=== PATIENT | female | born 1960 | race Caucasian/White ===

== ENCOUNTER → 2018-01-08 08:05 | Outpatient (CLI) | payer OTHER, SELFPAY ==
[2018-01-08 09:22] LABS: Add Manual Diff / Slide Review NO; Basophils Percent Auto 1.4 % (0-2); Eosinophils Percent Auto 3.9 % (2-4); Hematocrit 38.5 % (36-46); Lymphocytes Percent Auto 31.2 % (25-40); Mean Corpuscular HGB Conc 33.9 % (30-36); Mean Corpuscular Volume 85.6 fL (80-100); Monocytes Percent Auto 5.9 % (3-14); Neutrophils Absolute Auto 3500 /uL (3000-5900); Neutrophils Percent Auto 57.6 % (50-75); Platelet Count 202 X10^3/uL (150-400); Red Blood Cell Count 4.49 X10^6/uL (4.0-5.2); Red Cell Distribution Width 13.3 % (11.6-14.8); White Blood Cell Count 6.1 X10^3/uL (4.5-11.0)
[2018-01-08 09:36] LABS: Hemoglobin A1C% w Est Avg Glu 5.5 % (4.0-6.0)
[2018-01-08 09:45] LABS: Alanine Aminotransferase 28 IU/L (9-52); Albumin 4.4 g/dL (3.5-5.0); Albumin Globulin Ratio 1.8 (1.0-2.8); Alkaline Phosphatase 70 U/L (38-126); Aspartate Aminotransferase 22 IU/L (14-36); Bilirubin Total 0.6 mg/dL (0.2-1.3); Blood Urea Nitrogen 14 mg/dL (7-17); Calcium 9.1 mg/dL (8.4-10.2); Carbon Dioxide 28 mmol/L (22-32); Chloride 105 mmol/L (98-107); Cholesterol 165 mg/dL (140-199); Estimated Glomerular Filt Rate > 60.0 mL/min (>60); Globulin 2.5 g/dL (1.7-4.1); Glucose 91 mg/dL (70-100); HDL Cholesterol 59 mg/dL (40-60); HEMOLYSIS < 15 (0-50); LDL Cholesterol Calculated 86 mg/dL (<100); Potassium 4.2 mmol/L (3.4-5.1); Sodium 142 mmol/L (137-145); Total Protein 6.9 g/dL (6.3-8.2); Triglycerides 99 mg/dL (35-150)
[2018-01-08 10:18] LABS: TSH w/ Reflex to FT4 0.75 uIU/mL (0.47-4.68)
== END ==
PROVIDERS: Visit Provider Family Medicine
DX: R03.0 Elevated blood-pressure reading, without diagnosis of hypertension (principal); Z86.32 Personal history of gestational diabetes
CPT/HCPCS: 36415; 80053; 80061; 83036; 84443; 85025

== ENCOUNTER → 2020-09-16 12:10 | Outpatient (CLI) | payer OTHER, SELFPAY ==
[2020-09-16] MEDS: COVID-19 VACC #1, MRNA(MOD) 100 MCG/0.5 ML VIAL IM (12:19)
== END ==
PROVIDERS: Visit Provider Internal Medicine
DX: Z23 Encounter for immunization (principal)
CPT/HCPCS: 0011A; 91301

== ENCOUNTER → 2020-10-14 12:26 | Outpatient (CLI) | payer OTHER, SELFPAY ==
[2020-10-14] MEDS: COVID-19 VACC #2, MRNA(MOD) 100 MCG/0.5 ML VIAL IM (12:33)
== END ==
PROVIDERS: Visit Provider Internal Medicine
DX: Z23 Encounter for immunization (principal)
CPT/HCPCS: 0012A; 91301

== ENCOUNTER 2024-02-26 18:39 | Emergency (ER) | payer OTHER, SELFPAY ==
[2024-02-26] VITALS (11 sets, daily range): BP systolic 161–203; BP diastolic 78–102; PULSE 81–113; RESP 20; TEMP 36.8; O2SAT 96–100; BMI 28.3
--- NOTE | 2024-02-26 18:58 | DI.RAD.S_ITS ---
PROCEDURE: XR ELBOW RT MIN 3V INDICATIONS: fall, pain TECHNIQUE: 3 views of the elbow were acquired. COMPARISON: None. FINDINGS: Bones: No fractures or dislocations. No suspicious bony lesions. Soft tissues: No elbow joint effusion. No suspicious soft tissue calcifications. IMPRESSION: No visualized acute fracture or dislocation. However, if clinical concern and/or pain persist, short interval imaging followup in 7-10 days is recommended, as occult injury cannot be definitively excluded. Dictated by: Lizette Renee M.D. on 02/26/2024 at 20:01 Approved by: Lizette Renee M.D. on 02/26/2024 at 20:01
[2024-02-26] MEDS: ACETAMINOPHEN 325 MG TABLET 650 MG PO (19:50)
--- NOTE | 2024-02-26 22:57 | ED_ITS ---
HPI - Fall General Chief Complaint: Fall Stated Complaint: GLF Time Seen by Provider: 02/26/24 22:34 Source: patient and EMS Mode of arrival: EMS Limitations: no limitations History of Present Illness HPI Narrative: 63-year-old female with no reported medical issues. Patient states she was walking her dog, it was distracted by another dog and pulled her forward some how she fell backwards and hit her head on the wall of the building. She states she felt little bit dizzy immediately afterwards. She has a large goose egg. She denies any loss of consciousness. She states her headache has resolved. Denies any neck pain, denies any chest pain or shortness of breath. No nausea or vomiting. No diarrhea or constipation. No urinary symptoms. No numbness tingling or weakness. She notes little bit of a contusion or discomfort at her right elbow. She states it is moving fine without issue. She feels much improved at this time. Denies any daily medications or medical issues. She does not take any aspirin or daily thinners. She was noted to be hypertensive in the department she states she was told that her last dental appointment she was little bit hypertensive. She has not followed this up. Denies any tobacco, no alcohol, no recreational drugs besides marijuana. Related Data Allergies Allergy/AdvReac Type Severity Reaction Status Date / Time No Known Drug Allergies Allergy Verified 02/26/24 18:58 Review of Systems Review of Systems ROS Unobtainable: All systems reviewed & are unremarkable except as noted in HPI and below Patient History Social History Smoking Status: Never smoker Smoking Status: Never smoker alcohol intake frequency: other Substance Use Type: marijuana Exam Narrative Exam Narrative: GEN: Patient appears in mild distress. HEAD: Hematoma and a posterior scalp, no raccoon/Watt sign. NECK: Nontender, painless range of motion, trachea midline Negative Nexus criteria, no midline line tenderness, distracting injury, altered mental status, neuro deficit, recent EtOH. EYES: PERRLA, EOMI ENT: External inspection normal, trachea is midline, TM's are normal no hemotypanum, Nares are clear, no septal hematoma, no dental or oral injury, airway is normal and with normal occlusion, No bony tenderness RESP: Chest is nontender and has symmetric movement, no ecchymosis, breath sounds are normal no crackles, wheezes or rales CVS: Heart sounds are normal, no murmur noted, No JVD. ABG/GI: Nontender, soft, normal bowel sounds, no distention, no organomegaly, pelvic rock is negative NEURO: Oriented AOx3, neuro is grossly intact, sensation and motor is normal all 4 extremities moving, cranial nerves II through XII are intact, GCS is 15 PSYCH: Normal mood and affect SKIN: Intact, warm and dry, no crepitus and without decubitus BACK: No CVA tenderness, no vertebral tenderness, no step-off's, no crepitus EXT: Nontender to palpation at the right elbow. Patient has some mild swelling. No abrasion or contusion noted. Hips are nontender, no pedal edema, normal color and temperature, normal range of motion of extremities with normal tendon exam, 2+ pulses in all four extremities Initial Vital Signs Initial Vital Signs: Vital Signs Temperature 98.2 F 02/26/24 18:48 Pulse Rate 99 H 02/26/24 18:48 Respiratory Rate 20 02/26/24 18:48 Blood Pressure 203/98 H 02/26/24 18:48 Pulse Oximetry 100 02/26/24 18:48 Oxygen Delivery Method Room Air 02/26/24 18:[address] Head Rule Age <16 years old: No Patient on blood thinners: No Seizure after injury: No Exclusion: Patient NOT Excluded, Proceed to next steps GCS < 15 at 2 hr post trauma: No Suspected open or depressed skull fracture: No Any sign of basilar skull fracture (hemotympanum, raccoon eyes, Watt's sign, CSF hilda-/rhinorrhea): No Two or more episodes of vomiting: No Age greater or equal to 65 years: No Retrograde amnesia to the event greater or equal to 30 min: No Dangerous Mechanism (pedestrian vs. mv, occupant ejected from mv, fall from >3 ft or > 5 stairs): No Recommendation: CT unnecessary Nexus Score for C-Spine Focal Neurologic deficit present: No Midline spinal tenderness present: No Altered level of conciousness present: No Intoxication present: No Distracting Injury Present: No Nexus Criteria for C-spine: 0 Course Orders Ordered: Discontinued Medications Acetaminophen (Acetaminophen 325 Mg Tablet) 650 mg PO NOW ONE Stop: 02/26/24 19:50 Last Admin: 02/26/24 19:50 Dose: 650 mg Documented By: AB Vital Signs Vital signs: Vital Signs - 8 hr 02/26/24 21:30 02/26/24 21:30 02/26/24 22:00 Pulse Rate 89 84 Blood Pressure 183/95 H Pulse Oximetry 96 96 Oxygen Delivery Method 02/26/24 22:00 02/26/24 22:30 02/26/24 22:30 Pulse Rate 99 H Blood Pressure 168/83 H 189/98 H Pulse Oximetry 97 Oxygen Delivery Method 02/26/24 23:00 02/26/24 23:00 Pulse Rate 113 H Blood Pressure 193/95 H Pulse Oximetry 98 Oxygen Delivery Method Room Air MDM - Fall Imaging Data Extremity x-ray #1: Radiologist's Impression: [address] [address] XRay Report Signed Patient: Arlene Thorne I MR#: [id number] : 1960 Acct:[id number] Age/Sex: 63 / F Date of Service: 02/26/24 Loc: ED Accession Number: [id number] Procedure: XR elbow RT min 3V Ordering Provider: Violet Walters D.O. PROCEDURE: XR ELBOW RT MIN 3V INDICATIONS: fall, pain TECHNIQUE: 3 views of the elbow were acquired. COMPARISON: None. FINDINGS: Bones: No fractures or dislocations. No suspicious bony lesions. Soft tissues: No elbow joint effusion. No suspicious soft tissue calcifications. IMPRESSION: No visualized acute fracture or dislocation. However, if clinical concern and/or pain persist, short interval imaging followup in 7-10 days is recommended, as occult injury cannot be definitively excluded. Dictated by: Lizette Renee M.D. on 02/26/2024 at 20:01 Approved by: Lizette Renee M.D. on 02/26/2024 at 20:01 [facility] Narrative Medical decision making narrative: 63-year-old female who had a ground level fall actually striking of the wall of the building not a complete fall to the ground. Does have a goose egg on her posterior scalp noted little bit dizziness immediately afterwards and some headache. She states all has resolved. She has no persistent symptoms. She was not take any anticoagulants. Patient based on score is does not require head CT at this time she has no red flag symptoms that felt to necessitate this and does not take any anticoagulants. Did have a right elbow x-ray which is negative. Patient would very much like to discharge home. She has been ambulating without issue in the department. Discussed return precautions. Patient is noted to be hypertensive as department throughout her stay, she has not had any bradycardia. She notes that she was told she was hypertension and a dental visit several months ago. Does not have a current primary care so has not had her blood pressure checked any time recently. Discharge Plan Departure Patient Disposition: Home Clinical Impression: Hematoma of scalp, Elbow pain, right Instructions: Closed Head Injury Activity Restrictions/Additional Instructions: I would recommend follow up with primary care to have your blood pressure rechecked. You can take Tylenol up to a 1000 mg every 6 hours as needed for headaches. Please return for worsening headaches, severe headaches, sudden vision changes, new neck or back pain, new numbness tingling or weakness, persistent vomiting, any loss of bowel or bladder control or other new or concerning changes. Stand Alone Forms: Patient Portal/API
== END 2024-02-26 23:18 | disposition home or self-care (01) ==
PROVIDERS: Emergency Provider Emergency Medicine
DX: S00.03XA Contusion of scalp, initial encounter (principal); M25.521 Pain in right elbow; W22.09XA Striking against other stationary object, initial encounter; Y93.K1 Activity, walking an animal
CPT/HCPCS: 73080; 99283

== ENCOUNTER → 2025-01-01 10:01 | Outpatient (CLI) | payer MEDICARE, OTHER, SELFPAY ==
[2025-01-01 11:22] LABS: Add Manual Diff / Slide Review NO; Hematocrit 39.1 % (36-46); Hemoglobin 13.0 g/dL (12.0-16.0); Lymphocytes Absolute Auto 1500 /uL (1100-4500); Mean Corpuscular HGB Conc 33.4 % (30-36); Mean Corpuscular Hemoglobin 28.5 PG (26-34); Mean Corpuscular Volume 85.5 fL (80-100); Platelet Count 286 X10^3/uL (150-400)
[2025-01-01 12:47] LABS: Alanine Aminotransferase 18 IU/L (<35); Albumin 4.5 g/dL (3.5-5.0); Albumin Globulin Ratio 1.9 (1.0-2.8); Alkaline Phosphatase 79 U/L (38-126); Blood Urea Nitrogen 15 mg/dL (7-17); Calcium 9.4 mg/dL (8.4-10.2); Carbon Dioxide 24 mmol/L (22-32); Chloride 106 mmol/L (98-107); Cholesterol 182 mg/dL (140-199); Estimated Glomerular Filt Rate > 60 mL/min (>60); Globulin 2.4 g/dL (1.7-4.1); Glucose 91 mg/dL (70-99); HDL Cholesterol 70 mg/dL (40-60); HEMOLYSIS < 15 (0-50); Potassium 4.1 mmol/L (3.4-5.1); Sodium 139 mmol/L (137-145); Total Protein 6.9 g/dL (6.3-8.2); Triglycerides 58 mg/dL (35-150)
== END ==
PROVIDERS: PCP Family Medicine; Referring Provider Family Medicine; Visit Provider Family Medicine
DX: E78.5 Hyperlipidemia, unspecified (principal); I10 Essential (primary) hypertension
CPT/HCPCS: 36415; 80053; 80061; 85025

== ENCOUNTER → 2025-01-08 11:38 | Outpatient (CLI) | payer MEDICARE, OTHER, SELFPAY ==
--- NOTE | 2025-01-08 11:40 | DI.RAD.S_ITS ---
PROCEDURE: XR HIP W PEL IF DONE RT 2V INDICATIONS: chronic R hip pain; OA TECHNIQUE: AP pelvis with lateral view(s) of the right hip(s). COMPARISON: None. FINDINGS: Bones: No fractures or dislocations. Pelvic ring appears intact. No suspicious bony lesions. Severe erosive changes of the right hip. Soft tissues: The visualized bowel gas pattern is normal. No suspicious soft tissue calcifications. 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 Dictated by: Katherine Cruz M.D. on 01/08/2025 at 12:34 Approved by: Katherine Cruz M.D. on 01/08/2025 at 12:35
== END ==
PROVIDERS: PCP Family Medicine; Referring Provider Family Medicine; Visit Provider Family Medicine
DX: M16.11 Unilateral primary osteoarthritis, right hip (principal); M25.551 Pain in right hip
CPT/HCPCS: 73502